=== PATIENT | female | born 1985 | race African-American/Black ===

== ENCOUNTER 2024-09-14 14:45 | Emergency (ER) | payer OTHER ==
[2024-09-14 14:56] VITALS: BP 143/76; PULSE 92; RESP 20; TEMP 98.2; BMI 34.4
== END 2024-09-14 15:20 | disposition home or self-care (01) ==
LOC: JERFT 14:45
DX: Z48.02 Encounter for removal of sutures (principal)
CPT/HCPCS: 99281-25

== ENCOUNTER 2024-09-26 17:15 | Emergency (ER) | payer OTHER ==
[2024-09-26 17:28] VITALS: BP 127/77; PULSE 97; RESP 20; TEMP 98; BMI 35.5
== END 2024-09-26 19:03 | disposition home or self-care (01) ==
LOC: JERFT 17:15
DX: Z48.02 Encounter for removal of sutures (principal)
CPT/HCPCS: 99281-25